=== PATIENT | female | born 1955 | race Two or more races ===

== ENCOUNTER 2019-07-31 01:54 | Emergency (ER) | payer OTHER ==
[~2019-07-31] VITALS: Ht 149.9 cm; Wt 60.8 kg
[2019-07-31] MEDS ORDERED: INSULIN SYRING1 EA29 (02:00)
[2019-07-31] MEDS ORDERED: LEVOTHYROXINE25 MCG (02:00)
[2019-07-31] MEDS ORDERED: FORTAMET500 MG (02:00)
[2019-07-31] MEDS ORDERED: ATIVAN2 MG/1 ML (02:01)
[2019-07-31] MEDS ORDERED: AMBIEN10 MG (02:01)
[2019-07-31] MEDS ORDERED: MECLIZINE HCL25 M1 (02:03)
[2019-07-31] MEDS ORDERED: NAPR500T14 PO (05:36)
== END 2019-07-31 06:38 | disposition home or self-care (01) ==
LOC: ER 01:54
DX: S00.83XA Contusion of other part of head, initial encounter (principal); S80.02XA Contusion of left knee, initial encounter; S80.01XA Contusion of right knee, initial encounter; S13.4XXA Sprain of ligaments of cervical spine, initial encounter; V49.9XXA Car occupant (driver) (passenger) injured in unspecified traffic accident, initial encounter; Y93.89 Activity, other specified; Y92.488 Other paved roadways as the place of occurrence of the external cause; Y99.8 Other external cause status